=== PATIENT | female | born 1960 | race Caucasian/White ===

== ENCOUNTER 2016-11-22 20:58 | Emergency (ER) | payer MEDICAID, OTHER ==
[2016-11-22 21:09] VITALS: BP 120/81; PULSE 75; RESP 16; TEMP 98.2; O2SAT 97
[2016-11-22] MEDS ORDERED: Silver Sulfadiazine 1% Cream (20 gm) TOP STA (21:25)
[2016-11-22] MEDS ORDERED: Tetanus/Diphtheria Toxoids 0.5 ml Syringe IM ONE ×2 (21:25→21:34)
[2016-11-22] MEDS ORDERED: Silver Sulfadiazine 1% Cream (20 gm) ONE (21:34)
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
== END 2016-11-22 22:00 | disposition home or self-care (01) ==
LOC: C.ER 20:58
DX: T22.211A Burn of second degree of right forearm, initial encounter (principal); X13.1XXA Other contact with steam and other hot vapors, initial encounter; Y93.G3 Activity, cooking and baking

== ENCOUNTER 2016-11-24 12:47 | Emergency (ER) | payer OTHER ==
[2016-11-24 13:06] VITALS: BP 123/75; PULSE 71; RESP 18; TEMP 98; O2SAT 99
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
== END 2016-11-24 13:32 | disposition home or self-care (01) ==
LOC: C.ER 12:47
DX: Z51.89 Encounter for other specified aftercare (principal)

== ENCOUNTER 2018-04-06 17:08 | Emergency (ER) | payer MEDICAID, OTHER ==
[2018-04-06 17:30] VITALS: BP 126/79; PULSE 72; RESP 16; TEMP 98.5; O2SAT 98; BMI 25.6
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
--- NOTE | 2018-04-07 08:39 | RAD ---
Date of service: 04/06/2018 PROCEDURE: Left Knee Radiographs. HISTORY: Pain. COMPARISON: None. FINDINGS: BONES: Normal. No fracture. JOINTS: Trace osteoarthritis-medial tibial spine spurring. JOINT EFFUSION: None. OTHER FINDINGS: None. IMPRESSION: Trace osteoarthritis-medial tibial spine spurring. No fracture
== END 2018-04-06 19:35 | disposition home or self-care (01) ==
LOC: C.ER 17:08
DX: S83.92XA Sprain of unspecified site of left knee, initial encounter (principal); X58.XXXA Exposure to other specified factors, initial encounter; E03.9 Hypothyroidism, unspecified; E78.00 Pure hypercholesterolemia, unspecified; N18.6 End stage renal disease; M81.0 Age-related osteoporosis without current pathological fracture